=== PATIENT | male | born 1955 | race Caucasian/White ===

== ENCOUNTER 2019-01-18 12:07 | Observation (INO) | payer OTHER, SELFPAY ==
[2019-01-18] VITALS (7 sets, daily range): BP systolic 104–124; BP diastolic 66–79; PULSE 71–92; RESP 16–22; TEMP 36.4–37.4; O2SAT 93–98; BMI 30.7
--- NOTE | 2019-01-18 12:13 | DI.RAD.S_ITS ---
PROCEDURE: XR CHEST 1V INDICATIONS: chest pain TECHNIQUE: One view of the chest was acquired. COMPARISON: None. FINDINGS: Surgical changes and devices: None. Lungs and pleura: Low lung volumes are noted. This causes a crowded appearance to the lung markings and limits evaluation. Interstitial prominence is seen. Mediastinum: Mediastinal contours appear normal. Heart size is normal. Bones and chest wall: No suspicious bony lesions. Overlying soft tissues appear unremarkable. IMPRESSION: Interstitial prominence is seen throughout. The interstitial prominence is nonspecific, yet may be related to pulmonary edema or simply artifact from an incomplete inspiratory result. Dictated by: Moreno Orellana M.D. on 01/18/2019 at 11:41 Approved by: Moreno Orellana M.D. on 01/18/2019 at 11:44
--- NOTE | 2019-01-18 12:23 | ED_ITS ---
HPI - Chest Pain General Chief Complaint: Chest Pain Stated Complaint: Chest Pain Time Seen by Provider: 01/18/19 12:20 Source: patient Mode of arrival: EMS Limitations: no limitations History of Present Illness HPI narrative: Patient is a 63-year-old male with history of DVT who presents with shortness of breath and chest pain. He says this is been ongoing for about a week he was seen evaluated at [facility] last week where he had a CT for PE which was negative. He continues to have shortness of breath and chest discomfort with exertion. His O2 is within normal limits on room air at rest. He was switched to Pradaxa 4 days ago. Today he feels short of breath and has chest heaviness all across his chest it is nonradiating. He had a pulmonary function test yesterday which he said was normal that physician actually gave him nitroglycerin to help with his breathing. MD complaint: chest pain Duration: constant Severity: moderate Quality: tightness and heaviness Pain radiation: none Exacerbating factors: exertion Treatments prior to arrival chest pain: aspirin and nitroglycerin Related Data Home Medications Medication Instructions Recorded Confirmed dabigatran etexilate [Pradaxa] 150 mg PO BID 01/18/19 01/18/19 meloxicam 15 mg PO DAILY 01/18/19 01/18/19 nitroglycerin 0.4 mg SUBLINGUAL PRN PRN 01/18/19 01/18/19 omeprazole 20 mg PO DAILY 01/18/19 01/18/19 Review of Systems Review of Systems ROS Unobtainable: All systems reviewed & are unremarkable except as noted in HPI and below Constitutional Constitutional: Denies chills, Denies fever(s), Denies lethargy and Denies weakness Cardiovascular Cardiovascular: Reports as per HPI, Denies dyspnea and Denies dyspnea on exertion Respiratory Respiratory: Denies cough, Denies dyspnea, Denies dyspnea on exertion and Denies wheezing Gastrointestinal Gastrointestinal: Denies abdominal pain, Denies change in bowel habits, Denies diarrhea, Denies nausea and Denies vomiting Genitourinary Genitourinary: Denies hematuria, Denies flank pain, Denies urinary incontinence and Denies urinary urgency Musculoskeletal Musculoskeletal: Denies back pain, Denies muscle weakness, Denies numbness and Denies tingling Integumentary/Breasts Skin/Breast: Denies pruritus, Denies erythema, Denies rash and Denies wounds Neurologic Neurologic: Denies numbness, Denies tingling and Denies weakness Allergic/Immunologic Allergic/Immunologic: Denies wheezing Patient History Medical History DVT (deep venous thrombosis) (Acute) Social History Smoking Status: Never smoker Substance Use Type: does not use Exam Initial Vital Signs Initial Vital Signs: Vital Signs Temperature 97.6 F 01/18/19 12:13 Pulse Rate 92 H 01/18/19 12:13 Respiratory Rate 20 01/18/19 12:13 Blood Pressure 110/73 01/18/19 12:13 Pulse Oximetry 98 01/18/19 12:13 GENERAL: Alert male appears well HEENT: Head atraumatic,EOMI, pupils reactive, face symmetric, moist mucous membranes CARDIOVASCULAR: Regular rate and rhythm without murmurs, rubs or gallops. RESPIRATORY: Breath sounds equal bilaterally, no wheezes rales or rhonchi. Does some mild conversational dyspnea no intercostal retractions. No tachypnea ABDOMEN: Soft, nontender. Normoactive bowel sounds all 4 quadrants. No guarding or rebound. EXTREMITIES: Normal range of motion, no clubbing or edema. Neurovascularly intact NEUROLOGICAL: Alert and oriented x4.Normal gait and speech. SKIN: Warm, dry, no laceration, no petechiae, no rashes or lesions. Scores HEART Score Heart Score history: Highly Suspicious Heart Score EKG: Normal Heart Score Age: 45-64 years old Heart Score risk factors: No known risk factors Heart Score troponin: < or = to normal limit Heart Score Total: 3 Course Orders Ordered: ED Orders 01/18/19 12:00 Complete Blood Count AUTO DIFF Stat Comprehensive Metabolic Panel Stat Lipase Stat Partial Thromboplastin Time Stat Prothrombin Time INR Stat Troponin & CK Cardiac Panel Stat 01/18/19 12:13 XR chest 1V Stat EKG-12 Lead Stat 01/18/19 13:11 CT angio chest PE protocol Stat Discontinued Medications Ketorolac Tromethamine (Toradol) 15 mg IV NOW ONE Stop: 01/18/19 13:28 Last Admin: 01/18/19 13:39 Dose: 15 mg Documented by: GORGE Morphine Sulfate (Morphine) 2 mg IV NOW ONE Stop: 01/18/19 12:41 Last Admin: 01/18/19 12:44 Dose: 2 mg Documented by: GORGE Nitroglycerin (Nitrostat) 0.4 mg SL NOW ONE Stop: 01/18/19 12:22 Last Admin: 01/18/19 12:24 Dose: 0.4 mg Documented by: GORGE Nitroglycerin (Nitrostat) 0.4 mg SL NOW ONE Stop: 01/18/19 12:22 Last Admin: 01/18/19 12:23 Dose: Not Given Documented by: GORGE Vital Signs Vital signs: Vital Signs - 8 hr 01/18/19 12:13 01/18/19 12:24 01/18/19 13:04 Temperature 97.6 F Pulse Rate 92 H 83 79 Respiratory Rate 20 22 Blood Pressure 110/73 110/73 Blood Pressure [Left Arm] 107/79 Pulse Oximetry 98 95 MDM - Chest Pain Lab Data Attestation: I reviewed the patient's lab results. Result diagrams: 01/18/19 12:00 01/18/19 12:00 Labs: Lab Results 01/18/19 01/18/19 01/18/19 Range/Units 12:00 12:00 12:00 WBC 8.3 (4.5-11.0) X10^3/uL RBC 5.25 (4.5-5.9) X10^6/uL Hgb 16.5 (13.5-17.5) g/dL Hct 47.6 (41-53) % MCV 90.7 (80-100) fL MCH 31.4 (26-34) PG MCHC 34.7 (30-36) % RDW 12.9 (11.6-14.8) % Plt Count 266 (150-400) X10^3/uL Neut % (Auto) 72.2 (50-75) % Lymph % (Auto) 19.2 L (25-40) % [place] % (Auto) 7.6 (3-14) % Eos % (Auto) 0.4 L (2-4) % Baso % (Auto) 0.6 (0-2) % Neut # (Auto) 6000 (5928-3218) /uL Lymph # (Auto) 1600 (5502-5187) /uL [place] # (Auto) 600 (0-900) /uL Eos # (Auto) 0 (0-450) /uL Baso # (Auto) 0 (0-100) /uL PT 13.9 H (10.1-12.7) SECONDS INR 1.2 (0.9-1.3) APTT 44 H (26.4-36.2) SECONDS Sodium 138 (137-145) mmol/L Potassium 3.9 (3.4-5.1) mmol/L Chloride 101 (98-107) mmol/L Carbon Dioxide 26 (22-32) mmol/L BUN 14 (9-20) mg/dL Creatinine 0.90 (0.66-1.25) mg/dL Estimated GFR > 60.0 (>60) mL/min BUN/Creatinine Ratio 15.6 (6-22) Glucose 106 (80-110) mg/dL Calcium 9.3 (8.4-10.2) mg/dL Total Bilirubin 1.5 H (0.2-1.3) mg/dL AST 35 (17-59) IU/L ALT 51 H (<50) IU/L Alkaline Phosphatase 89 (38-126) U/L Total Creatine Kinase 85 (55-170) U/L CK-MB (CK-2) TNP CK-MB (CK-2) Rel Index TNP Troponin I < 0.012 (0.01-0.034) ng/mL Total Protein 7.9 (6.3-8.2) g/dL Albumin 4.8 (3.5-5.0) g/dL Globulin 3.1 (1.7-4.1) g/dL Albumin/Globulin Ratio 1.5 (1.0-2.8) Lipase 78 (23-300) U/L Imaging Data Chest x-ray: Radiologist's impression: PROCEDURE: XR CHEST 1V INDICATIONS: chest pain TECHNIQUE: One view of the chest was acquired. COMPARISON: None. FINDINGS: Surgical changes and devices: None. Lungs and pleura: Low lung volumes are noted. This causes a crowded appearance to the lung markings and limits evaluation. Interstitial prominence is seen. Mediastinum: Mediastinal contours appear normal. Heart size is normal. Bones and chest wall: No suspicious bony lesions. Overlying soft tissues appear unremarkable. IMPRESSION: Interstitial prominence is seen throughout. The interstitial prominence is nonspecific, yet may be related to pulmonary edema or simply artifact from an incomplete inspiratory result. Dictated by: Moreno Orellana M.D. on 01/18/2019 at 11:41 CT scan - chest: Radiologist's impression: PROCEDURE: CT ANGIO CHEST PE PROTOCOL INDICATIONS: sob known dvt TECHNIQUE: After the administration of intravenous contrast, 2 mm thick sections acquired from the pulmonary apices to the posterior costophrenic angles. 3-dimensional maximum intensity projection (MIP) coronal and sagittal reformats were then acquired through the thorax. For radiation dose reduction, the following was used: automated exposure control, adjustment of mA and/or kV according to patient size. COMPARISON: [facility], CR, XR CHEST 1V, 01/18/2019, 12:16. FINDINGS: Image quality: Excellent. Pulmonary arteries: Pulmonary arteries are normal in size, and demonstrate no intraluminal filling defects to suggest central pulmonary embolism. Lungs and pleura: Lungs are clear. No pleural effusions or pneumothorax. Central and peripheral airways are patent. Mediastinum: Heart size is normal, without pericardial effusion. No mediastinal or hilar adenopathy. Thoracic aorta is normal in caliber and enhancement. Esophagus is normal in caliber, without hiatal hernia. Bones and chest wall: No suspicious bony lesions. Ribs and thoracic spine appear intact throughout. Spine degenerative disc disease and facet arthropathy.Thyroid gland is normal where visualized. No axillary or supraclavicular adenopathy. Abdomen: Visualized upper abdominal solid organs appear normal in the early arterial phase of enhancement. IMPRESSION: 1. No pulmonary embolus. 2. No lung consolidation or pleural effusions. Dictated by: Katheryn Blackmon MD, PhD on 01/18/2019 at 13:24 ECG Data Attestation: I personally reviewed and interpreted this ECG as follows: Prior ECG tracings: not available for review Interpretation: Normal sinus rhythm rate 84 p.r. interval 151 QRS [address] elevations or depressions T-wave inversion noted in lead 3 no priors to compare MDM Narrative Medical decision making narrative: Patient does have some obvious conversational dyspnea but no acute respiratory distress. He states that he does feel better with oxygen. Records from [facility] have been reviewed possible pneumonitis. 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 His pain has improved with Toradol and morphine. He has had full pulmonology workup. It does appear that he had an echocardiogram during his visit at [facility] but no perfusion study. He states that he does have family history of his cardiac issues. His chest pain and shortness of breath definitely does get worse with exertion which is concerning for possible cardiac. Cardiology consult to Dr. Hodge who does agree the patient likely needs a perfusion stress test. Dr. Astudillo updated patient's symptoms test results agrees with observation. PE study again is negative. Discharge Plan Departure Admit Date/Time: 01/18/19 14:04 Admit Provider: Pipe Astudillo
[2019-01-18] MEDS: NITROGLYCERIN 0.4 MG SL TAB SL (12:24)
[2019-01-18 12:26] LABS: Add Manual Diff / Slide Review NO; Basophils Absolute Auto 0 /uL (0-100); Basophils Percent Auto 0.6 % (0-2); Eosinophils Absolute Auto 0 /uL (0-450); Eosinophils Percent Auto 0.4 % (2-4); Hematocrit 47.6 % (41-53); Hemoglobin 16.5 g/dL (13.5-17.5); Lymphocytes Absolute Auto 1600 /uL (1100-4500); Lymphocytes Percent Auto 19.2 % (25-40); Mean Corpuscular HGB Conc 34.7 % (30-36); Mean Corpuscular Hemoglobin 31.4 PG (26-34); Mean Corpuscular Volume 90.7 fL (80-100); Monocytes Absolute Auto 600 /uL (0-900); Monocytes Percent Auto 7.6 % (3-14); Neutrophils Absolute Auto 6000 /uL (1500-7000); Neutrophils Percent Auto 72.2 % (50-75); Platelet Count 266 X10^3/uL (150-400); Red Blood Cell Count 5.25 X10^6/uL (4.5-5.9); Red Cell Distribution Width 12.9 % (11.6-14.8); White Blood Cell Count 8.3 X10^3/uL (4.5-11.0)
--- NOTE | 2019-01-18 12:27 | PC.NURSE ---
Pt arrived via EMS for CP 12/21 since 0800 this morning. Midsternal and non radiating. took 2 nitro with minimal relief and decided to call 911. Recent hospitalization for DVT's in December 2018 and taking Pradaxa. SOB and speaking in short sentences. 94% RA and placed on 2L O2. 18G IV in place by EMS and labs drawn. ASA 324mg and Fentanyl 150mcg given by EMS with pain improvement to 09/20. Nitro x1 SL given per MAY on arrival. EKG obtained and placed on cardiac monitoring on arrival. Awaiting further orders
[2019-01-18 12:32] LABS: INR 1.2 (0.9-1.3); Prothrombin Time 13.9 SECONDS (10.1-12.7)
[2019-01-18 12:34] LABS: PTT Partial Thromboplastin Tim 44 SECONDS (26.4-36.2)
[2019-01-18 12:36] LABS: Alanine Aminotransferase 51 IU/L (<50); Albumin 4.8 g/dL (3.5-5.0); Albumin Globulin Ratio 1.5 (1.0-2.8); Alkaline Phosphatase 89 U/L (38-126); Aspartate Aminotransferase 35 IU/L (17-59); BUN Creatinine Ratio 15.6 (6-22); Bilirubin Total 1.5 mg/dL (0.2-1.3); Blood Urea Nitrogen 14 mg/dL (9-20); Calcium 9.3 mg/dL (8.4-10.2); Carbon Dioxide 26 mmol/L (22-32); Chloride 101 mmol/L (98-107); Creatine Kinase 85 U/L (55-170); Estimated Glomerular Filt Rate > 60.0 mL/min (>60); Globulin 3.1 g/dL (1.7-4.1); Glucose 106 mg/dL (80-110); HEMOLYSIS 65 (0-50); Lipase 78 U/L (23-300); Potassium 3.9 mmol/L (3.4-5.1); Sodium 138 mmol/L (137-145); Total Protein 7.9 g/dL (6.3-8.2)
[2019-01-18] MEDS: MORPHINE 2 MG/ML INJ IV (12:44)
--- NOTE | 2019-01-18 12:45 | PC.NURSE ---
Morphine given for pain. DI here to transport pt to CT. BP 116/84 HR 100.
[2019-01-18 12:47] LABS: Troponin I < 0.012 ng/mL (0.01-0.034)
--- NOTE | 2019-01-18 13:11 | DI.CT.S_ITS ---
PROCEDURE: CT ANGIO CHEST PE PROTOCOL INDICATIONS: sob known dvt TECHNIQUE: After the administration of intravenous contrast, 2 mm thick sections acquired from the pulmonary apices to the posterior costophrenic angles. 3-dimensional maximum intensity projection (MIP) coronal and sagittal reformats were then acquired through the thorax. For radiation dose reduction, the following was used: automated exposure control, adjustment of mA and/or kV according to patient size. COMPARISON: [facility], CR, XR CHEST 1V, 01/18/2019, 12:16. FINDINGS: Image quality: Excellent. Pulmonary arteries: Pulmonary arteries are normal in size, and demonstrate no intraluminal filling defects to suggest central pulmonary embolism. Lungs and pleura: Lungs are clear. No pleural effusions or pneumothorax. Central and peripheral airways are patent. Mediastinum: Heart size is normal, without pericardial effusion. No mediastinal or hilar adenopathy. Thoracic aorta is normal in caliber and enhancement. Esophagus is normal in caliber, without hiatal hernia. Bones and chest wall: No suspicious bony lesions. Ribs and thoracic spine appear intact throughout. Spine degenerative disc disease and facet arthropathy.Thyroid gland is normal where visualized. No axillary or supraclavicular adenopathy. Abdomen: Visualized upper abdominal solid organs appear normal in the early arterial phase of enhancement. IMPRESSION: 1. No pulmonary embolus. 2. No lung consolidation or pleural effusions. Dictated by: Katheryn Blackmon MD, PhD on 01/18/2019 at 13:24 Approved by: Katheryn Blackmon MD, PhD on 01/18/2019 at 13:32
[2019-01-18] MEDS: KETOROLAC 60 MG/2 ML VIAL 15 MG IV (13:39)
--- NOTE | 2019-01-18 18:34 | P.HP_ITS ---
History of Present Illness History of Present Illness Date Patient Seen: 01/18/19 Time Patient Seen: 18:34 Chief complaint: Chest Pain Narrative: The patient is a 63-year-old male with recurrent DVTs, chronic anticoagulation, multiple failed NOACs (failed xarelto and eliquis), 25 PYH of tobacco dependence (quit 1993) and osteoarthritis. Patient presents out of concern for chest pain. Patient has had chest discomfort since 12/30/2018. At that time he was hospitalized in [facility] and was found to have a LLE DVT. Patient reports a cardiac workup that included normal troponins, normal EKG, CTA negative for PE, and a normal echocardiogram. These records are not available for review. Patient states that he was discharged home with a recomm endation for a follow-up stress test and a referral to pulmonology. Patient was seen by the banking officer on 01/17. Reports having normal pulmonary function tests. Patient states that the CT imaging was reviewed, there was concern for ground-glass opacities. Exact feedback of the CT imaging is not known, however patient reports that he was directed to pursue and/or complete further cardiac work-up. At 10:00 a.m. today patient developed chest pain which she describes to be heavy, like a horse sitting on his chest. Pain is localized to mid-sternal/sub-sternal aspect of the chest. There is no radiation to the back, extremities, neck or jaw. Rated discomfort as 10/10. He treated chest discomfort with nitroglycerin. Reports partial relief of chest discomfort with the 1st dose, but not the 2nd dose. At time of the event patient reports associated symptoms of dyspnea, diaphoresis, and palpitations. No nausea or vomiting. Reports ability to walk approximately 25 ft before needing to rest. States it takes him 10-15 minutes to recover. Patient was walked earlier w/o evidence of hypoxia on ambulation. EMS was summoned, in field treated patient with ASA 324 mg and a total of 150 mcg of fentanyl. Patient reports chronic DVT in the RLE. Recently (dec 2018) was diagnosed with a LLE DVT. His 1st DVT was 20-25 years ago. He was treated with multiple anticoagulation agents. Reports failing Xarelto and Eliquis. Known to have been started on Pradaxa 150 mg b.i.d. 4 days ago. Patient reports adherence with anticoagulation. Patient reports prior hematological workup, however there was no specific cause found for recurrent DVTs. Patient works in aircraft maintenance. One month ago reports exposure to toxic epoxy pain and fiberglass insulation. This occured shortly prior to onset of the DVT. Recently there was also some concern for pneumonitis. No evidence on CTA of the chest done earlier in the day. Denies fever and chills. No upper respiratory symptoms. No abdominal pain. No dizziness, lightheadedness, or syncopal events. No myalgia or myopathy. No new b ruising. ED Presentation & Work-Up Triaged in ED on 01/18 at 1213. VS. T 97.6F 110/73 mmHg HR 92 RR 20 SpO2 98% on RA. GCS 15. LAMS 0. EKG, 01/18 at 1215. SR (v-rate 84). LAFB. CXR: Interstitial prominence is seen throughout (non-specific), may be related to pulmonary edema or simply artifact from an incomplete inspiratory result. CTA CHEST: No PE. No lung consolidation or pleural effusion. Labs, 01/18 at 1200 WBC 8.3 HGB 16.5 PLT 266 PT 13.9 INR 1.2 aPTT 44 Na 138 K 3.9 Cl 101 Ca 9.3 ALB 4.8 CO2 26 BUN 14 Cr 0.9 BUN:Cr 15.6 GLU 106 T.Bili 1.5 AST 35 ALT 51 ALK PHOS 89 LIPASE 78 CK 85 TROP < 0.012 Patient History Medical History (Updated 01/18/19 @ 20:56 by ROSA [place]) Chronic anticoagulation (Acute) Chronic deep vein thrombosis (DVT) of right lower extremity (Chronic) Deep vein thrombosis (DVT) of left lower extremity (Acute) DVT (deep venous thrombosis) (Acute) Osteoarthritis (Chronic) Surgical History (Updated 01/18/19 @ 20:56 by ROSA [place]) History of bilateral knee replacement (Acute) Family & Social History Family History (Updated 01/18/19 @ 20:58 by ROSA [place]) Mother Dementia Brain tumor Father Leukemia Social History: household members spouse Prior Living Arrangements House Safety & Behavioral: Feels Safe in Current Yes Environment Been Physically Hurt or No Threatened By a Person Suicidal Ideation Description None Suicide Plan Description No Plan Tobacco & Substance use: Smoking Status Former smoker, 25 PYH, quit in 1993 alcohol intake current alcohol intake frequency a few times a week Substance Use Type Denies prior and current use Meds Home Medications and Allergies Home Medications Medication Instructions Recorded Confirmed Type dabigatran etexilate [Pradaxa] 150 mg PO BID 01/18/19 01/18/19 History meloxicam 15 mg PO DAILY 01/18/19 01/18/19 History nitroglycerin 0.4 mg SUBLINGUAL PRN PRN 01/18/19 01/18/19 History omeprazole 20 mg PO DAILY 01/18/19 01/18/19 History Allergies Allergy/AdvReac Type Severity Reaction Status Date / Time Penicillins Allergy Rash Verified 01/18/19 17:10 Review of Systems Review of Systems ROS Unobtainable: All systems reviewed & are unremarkable except as noted in HPI and below Exam Vital Signs (past 8 hours): - 01/18/19 12:13 01/18/19 12:24 01/18/19 13:04 Temperature 97.6 F Pulse Rate 92 H 83 79 Respiratory Rate 20 22 Blood Pressure 110/73 110/73 Blood Pressure [Left Arm] 107/79 Pulse Oximetry 98 95 01/18/19 15:05 01/18/19 17:15 Temperature 98.0 F Pulse Rate 75 71 Respiratory Rate 19 16 Blood Pressure 124/78 Blood Pressure [Left Arm] 111/74 Pulse Oximetry 97 98 Oxygen Delivery Method Room Air Oxygen Flow Rate 0 Narrative Exam Narrative: Constitutional: NAD Neurologic: AOx3, no focal neurological deficits Head: NC, AT Eyes: PERRL, EOMI, Ears: external ears normal, no otorrhea Nose: external nose normal, no rhinorrhea or epistaxis Throat: MMM, oropharynx w/o exudate Neck: no masses, lymphadenopathy, or JVD Chest / Respiratory: equal chest rise, unlabored respiratory effort, diminished chest discomfort w/ inspiration Heart / CV: S1S2, no murmur Abdomen / GI: semi firm, round, NT, moderately distended, + BS, no organomegaly : no suprapubic tenderness, no CVA Peripheral / Vascular: cool to touch, DP and PT pulses palpable (1+), no edema or erythema Musc: full ROM of upper and lower extremities, adequate muscle tone and bulk Skin: no ecchymosis or suspicious lesions / ulcers Objective Labs Result Diagrams: 01/18/19 12:00 01/18/19 12:00 Labs: Laboratory Results - last 24 hr 01/18/19 01/18/19 01/18/19 12:00 12:00 12:00 WBC 8.3 RBC 5.25 Hgb 16.5 Hct 47.6 MCV 90.7 MCH 31.4 MCHC 34.7 RDW 12.9 Plt Count 266 Neut % (Auto) 72.2 Lymph % (Auto) 19.2 L [place] % (Auto) 7.6 Eos % (Auto) 0.4 L Baso % (Auto) 0.6 Neut # (Auto) 6000 Lymph # (Auto) 1600 [place] # (Auto) 600 Eos # (Auto) 0 Baso # (Auto) 0 PT 13.9 H INR 1.2 APTT 44 H Sodium 138 Potassium 3.9 Chloride 101 Carbon Dioxide 26 BUN 14 Creatinine 0.90 Estimated GFR > 60.0 BUN/Creatinine Ratio 15.6 Glucose 106 Calcium 9.3 Total Bilirubin 1.5 H AST 35 ALT 51 H Alkaline Phosphatase 89 Total Creatine Kinase 85 CK-MB (CK-2) TNP CK-MB (CK-2) Rel Index TNP Troponin I < 0.012 Total Protein 7.9 Albumin 4.8 Globulin 3.1 Albumin/Globulin Ratio 1.5 Lipase 78 Assessment & Plan Assessment & Plan narrative: Patient is being admitted under observation status for chest pain. Exertional Chest pain, present on admission, active - Trop x1 WNL, continue trending - EKG without ischemic change. - Symptoms highly concerning. Plan for stress test. - Risk stratify - Obtain records from [facility] Patient and spouse request to be transferred to [facility] where patient's most recent work-up has been completed. They report degree of anxiety and fear for a significant cardiac event. There is also a degree of concern due to conflicting information received during most recent admission and the etiology of chest discomfort. Patient does need a stress test. It was explained to the family that the stress test can be done at [facility]; however, they wish to be transferred to [facility] with availability of cardiology, pulmonology and hematology service on site. Patient's case was discussed with Cardiology at [facility], Dr. Leena Lopez who accepts patient for further evaluation. Request for the patient to be admitted to the hospitalist service and Cardiology consult. Patient in case discussed with Dr. Bunn, who accepted patient for transfer. Pending transfer this evening. LLE DVT, subacute, present on admission, active - Continue w/ Pradaxa 150 mg BID Chronic anticoagulation - Started on Pradaxa 5 days ago - Hx of NOAC failure [place] Osteoarthritis, chronic condition, present on admission, active - PT on meloxicam. Will hold this time due to high risk of bleeding combination with Pradaxa. Code status discussed with patient. Full code. Spouse is the designated surrogate decision maker. Home medications reviewed and reconciled accordingly. 60 minutes of [id number] time. Obtaining H&P, discussing plan of care, and answering patient and family questions.
[2019-01-18] MEDS: DABIGATRAN 75 MG CAPSULE 150 MG PO (20:06)
--- NOTE | 2019-01-18 21:36 | PC.NURSE ---
Pt arrived on unit at approx 1650 from ER on stretcher. VSS, slightly hypertensive and rating pain 5/10 for chest pressure. NSR, LS clear. A and O x 4. Ate evening meal and has voided x 3. BM today.
--- NOTE | 2019-01-18 22:06 | CM.DANOTE ---
Pt left by ambulance at 2206 via stretcher en route to [facility] in [facility]. He is A and O x 4. VSS. He had all of his belongings with him.
--- NOTE | 2019-01-19 05:41 | P.DS_ITS ---
History of Present Illness History of Present Illness Chief complaint: Chest Pain Narrative: The patient is a 63-year-old male with recurrent DVTs, chronic anticoagulation, multiple failed NOACs (failed xarelto and eliquis), 25 PYH of tobacco dependence (quit 1993) and osteoarthritis. Patient presents out of concern for chest pain. Patient has had chest discomfort since 12/30/2018. At that time he was hospitalized in [facility] and was found to have a LLE DVT. Patient reports a cardiac workup that included normal troponins, normal EKG, CTA negative for PE, and a normal echocardiogram. These records are not available for review. Patient states that he was discharged home with a recomme ndation for a follow-up stress test and a referral to pulmonology. Patient was seen by the admission nurse on 01/17. Reports having normal pulmonary function tests. Patient states that the CT imaging was reviewed, there was concern for ground-glass opacities. Exact feedback of the CT imaging is not known, however patient reports that he was directed to pursue and/or complete further cardiac work-up. At 10:00 a.m. today patient developed chest pain which she describes to be heavy, like a horse sitting on his chest. Pain is localized to mid-sternal/sub-sternal aspect of the chest. There is no radiation to the back, extremities, neck or jaw. Rated discomfort as 10/10. He treated chest d iscomfort with nitroglycerin. Reports partial relief of chest discomfort with the 1st dose, but not the 2nd dose. At time of the event patient reports associated symptoms of dyspnea, diaphoresis, and palpitations. No nausea or vomiting. Reports ability to walk approximately 25 ft before needing to rest. States it takes him 10-15 minutes to recover. Patient was walked earlier w/o evidence of hypoxia on ambulation. EMS was summoned, in field treated patient with ASA 324 mg and a total of 150 mcg of fentanyl. Patient reports chronic DVT in the RLE. Recently (dec 2018) was diagnosed with a LLE DVT. His 1st DVT was 20-25 years ago. He was treated with multiple anticoagulation agents. Reports failing Xarelto and Eliquis. Known to have been started on Pradaxa 150 mg b.i.d. 4 days ago. Patient reports adherence with anticoagulation. Patient reports prior hematological workup, however there was no specific cause found for recurrent DVTs. Patient works in aircraft maintenance. One month ago reports exposure to toxic epoxy pain and fiberglass insulation. This occured shortly prior to onset of the DVT. Recently there was also some concern for pneumonitis. No evidence on CTA of the chest done earlier in the day. Denies fever and chills. No upper respiratory symptoms. No abdominal pain. No dizziness, lightheadedness, or syncopal events. No myalgia or myopathy. No new bruising. ED Presentation & Work-Up Triaged in ED on 01/18 at 1213. VS. T 97.6F 110/73 mmHg HR 92 RR 20 SpO2 98% on RA. GCS 15. LAMS 0. EKG, 01/18 at 1215. SR (v-rate 84). LAFB. CXR: Interstitial prominence is seen throughout (non-specific), may be related to pulmonary edema or simply artifact from an incomplete inspiratory result. CTA CHEST: No PE. No lung consolidation or pleural effusion. Labs, 01/18 at 1200 WBC 8.3 HGB 16.5 PLT 266 PT 13.9 INR 1.2 aPTT 44 Na 138 K 3.9 Cl 101 Ca 9.3 ALB 4.8 CO2 26 BUN 14 Cr 0.9 BUN:Cr 15.6 GLU 106 T.Bili 1.5 AST 35 ALT 51 ALK PHOS 89 LIPASE 78 CK 85 TROP < 0.012 Discharge Providers Provider Date of admission: 01/18/19 14:04 Discharge Date: 01/18/19 Discharge provider: ROSA Carolina Exam Vital Signs (past 8 hours): Oxygen Delivery Method Room Air Oxygen Flow Rate 0 Narrative Exam Narrative: Neurologic: AOx3, no focal neurological deficits Head: NC, AT Eyes: PERRL, EOMI, Ears: external ears normal, no otorrhea Nose: external nose normal, no rhinorrhea or epistaxis Throat: MMM, oropharynx w/o exudate Neck: no masses, lymphadenopathy, or JVD Chest / Respiratory: equal chest rise, unlabored respiratory effort, diminished chest discomfort w/ inspiration Heart / CV: S1S2, no murmur Abdomen / GI: semi firm, round, NT, moderately distended, + BS, no organomegaly : no suprapubic tenderness, no CVA Peripheral / Vascular: cool to touch, DP and PT pulses palpable (1+), no edema or erythema Musc: full ROM of upper and lower extremities, adequate muscle tone and bulk Skin: no ecchymosis or suspicious lesions / ulcers Objective Labs Result Diagrams: 01/18/19 12:00 01/18/19 12:00 Labs: Laboratory Results - last 24 hr 01/18/19 01/18/19 01/18/19 12:00 12:00 12:00 WBC 8.3 RBC 5.25 Hgb 16.5 Hct 47.6 MCV 90.7 MCH 31.4 MCHC 34.7 RDW 12.9 Plt Count 266 Neut % (Auto) 72.2 Lymph % (Auto) 19.2 L [place] % (Auto) 7.6 Eos % (Auto) 0.4 L Baso % (Auto) 0.6 Neut # (Auto) 6000 Lymph # (Auto) 1600 [place] # (Auto) 600 Eos # (Auto) 0 Baso # (Auto) 0 PT 13.9 H INR 1.2 APTT 44 H Sodium 138 Potassium 3.9 Chloride 101 Carbon Dioxide 26 BUN 14 Creatinine 0.90 Estimated GFR > 60.0 BUN/Creatinine Ratio 15.6 Glucose 106 Calcium 9.3 Total Bilirubin 1.5 H AST 35 ALT 51 H Alkaline Phosphatase 89 Total Creatine Kinase 85 CK-MB (CK-2) TNP CK-MB (CK-2) Rel Index TNP Troponin I < 0.012 Total Protein 7.9 Albumin 4.8 Globulin 3.1 Albumin/Globulin Ratio 1.5 Lipase 78 Discharge Plan Discharge Plan Discharge Problem: Chest pain Patient Disposition: [facility] Other facility: [facility] Under care of provider: Dr. Bunn (hospitalist) Discharge comment: Patient was transferred to [facility] with hospitalist service excepting and Cardiology consult. Discussed patient in case with Cardiology Dr. Guerrero Lopez in detail. Discharge Med Rec/Prescriptions Prescriptions: Continued nitroglycerin 0.4 mg tablet, sublingual 0.4 mg sublingual PRN PRN (Reason: Shortness Of Breath) RF: 0 omeprazole 20 mg capsule,delayed release(DR/EC) 20 mg PO DAILY RF: 0 Pradaxa 150 mg capsule 150 mg PO BID RF: 0 Discontinued meloxicam 15 mg tablet 15 mg PO DAILY RF: 0 Visit Report/Discharge Packet Visit Report Forms: Patient Portal/API, Stroke Signs & Symptoms Discharge Data Attending Provider: Pipe Astudillo Admit Date/Time: 01/18/19 14:04 Discharges patient from system. Discharge Date/Time: 01/18/19 22:14
== END 2019-01-18 22:14 | disposition short-term general hospital (02) ==
LOC: ED 12:35 → AC 14:04
PROVIDERS: Admitting Provider Internal Medicine; Emergency Provider Emergency Medicine; Visit Provider Internal Medicine
DX: R07.9 Chest pain, unspecified (principal); Z86.718 Personal history of other venous thrombosis and embolism; Z79.01 Long term (current) use of anticoagulants
CPT/HCPCS: 36415; 71045; 71275; 80053; 82550; 83690; 84484; 85025; 85610; 85730; 93005; 93010; 94762; 96374; 96375; 99283; 99285; G0378; J1885; J2270; Q9967